=== PATIENT | female | born 1995 | race Caucasian/White ===

== ENCOUNTER 2019-07-22 07:43 | Emergency (ER) | payer BC, MEDICAID ==
--- NOTE | 2019-07-22 08:17 | EDM.PDOC ---
ED HPI GENERAL MEDICAL PROBLEM - General Chief Complaint: ENT Problem Time Seen by Provider: 07/22/19 07:45 Source of Information: Reports: Patient, Family History Limitations: Reports: No Limitations - History of Present Illness INITIAL COMMENTS - FREE TEXT/NARRATIVE: Patient presents to clinic today with mother with complaints of nasal congestion , sore throat and body aches. Patient states symptoms started Tuesday and she went to clinic which they told her it was a viral infection and to take OTC medication. Patient denies being tested for strep or influenza at that time. Patient states her throat pain and nasal congestion has worsened. Patient denies productive cough, wheezing, SOB, rhinorrhea, sneezing, rash, abdominal pain. Patient states her ears feel sore as well. Patient states she has used Sudafed, Mucinex, Tylenol and ibuprofen with little relief of head pressure and sore throat. Mother states patient has had strep in the past when she was younger. Patient refused influenza testing. Onset Date: 07/20/19 Duration: Getting Worse Location: Reports: Head, Face, Other (throat) Severity: Moderate Improves with: Reports: None Worsens with: Reports: Eating Associated Symptoms: Reports: No Other Symptoms Treatments MANAGER CREDIT RISK: Reports: Acetaminophen Posterior Throat Pain Score (Numeric/FACES): 8 - Related Data Allergies Allergy/AdvReac Type Severity Reaction Status Date / Time No Known Drug Allergies Allergy Other Verified 07/22/19 07:55 Home Meds: Home Meds Amoxicillin 875 mg PO BID #20 tablet 07/23/19 [Rx] Past Medical History - Past Health History Medical/Surgical History: Denies Medical/Surgical History Social & Family History - Tobacco Use Smoking Status *Q: Never Smoker ED ROS GENERAL - Review of Systems Review Of Systems: See Below Constitutional: Reports: Other (myalgia) HEENT: Reports: Ear Pain, Sinus Problem, Throat Pain. Denies: Ear Discharge, Eye Discharge, Eye Pain, Nose Pain, Vision Change Respiratory: Denies: Shortness of Breath, Wheezing, Cough, Sputum Cardiovascular: Denies: Chest Pain, Lightheadedness, Palpitations, Syncope Endocrine: Reports: No Symptoms GI/Abdominal: Reports: Decreased Appetite. Denies: Abdominal Pain, Constipation , Diarrhea, Nausea : Reports: No Symptoms Musculoskeletal: Reports: No Symptoms Skin: Reports: No Symptoms. Denies: Rash Neurological: Reports: No Symptoms Psychiatric: Reports: No Symptoms Hematologic/Lymphatic: Reports: No Symptoms Immunologic: Reports: No Symptoms ED EXAM, GENERAL - Physical Exam Exam: See Below Exam Limited By: No Limitations General Appearance: Alert, WD/WN, No Apparent Distress Eye Exam: Bilateral Eye: EOMI, PERRL Ears: Normal External Exam, Normal Canal, Hearing Grossly Normal, Normal TMs Ear Exam: Bilateral Ear: Auricle Normal, Canal Normal, TM normal Nose: Normal Inspection Throat/Mouth: Other (tonsils 3+, erythematous, small amount of exudate on right posterier aspect of tonsils, posterior pharynx is erythematous) Neck: Normal Inspection, Supple, Non-Tender Respiratory/Chest: No Respiratory Distress, Lungs Clear, Normal Breath Sounds, No Accessory Muscle Use, Chest Non-Tender Cardiovascular: Normal Peripheral Pulses, Regular Rate, Rhythm, No Edema, No Murmur Peripheral Pulses: 2+: Radial (L), Radial (R) GI/Abdominal: Normal Bowel Sounds, Soft, Non-Tender, No Organomegaly, No Distention, No Mass (Female) Exam: Deferred Rectal (Female) Exam: Deferred Back Exam: Normal Inspection Extremities: Normal Inspection Neurological: Alert, Oriented, CN II-XII Intact, Normal Cognition, Normal Reflexes, No Motor/Sensory Deficits Psychiatric: Normal Affect, Normal Mood Skin Exam: Warm, Dry, Intact, Normal Color, No Rash Lymphatic: No Adenopathy Course - Vital Signs Last Recorded V/S: Last Vital Signs Temp 36.1 C 07/22/19 07:48 Pulse 100 07/22/19 07:48 Resp 18 07/22/19 07:48 BP 120/77 07/22/19 07:48 Pulse Ox 97 07/22/19 07:48 - Re-Assessments/Exams Free Text/Narrative Re-Assessment/Exam: Patient swabbed for strep 07/22/19 0810 Departure - Departure Time of Disposition: 08:48 Disposition: Home, Self-Care 01 Clinical Impression: Viral illness - Discharge Information Prescriptions: Amoxicillin 875 mg PO BID #20 tablet Instructions: Viral Illness, Adult Referrals: Corrie Glasgow MD [Primary Care Provider] - Forms: ED Department Discharge Additional Instructions: Home to rest. Tylenol and ibuprofen for fever/discomfort. We will culture your throat swab. I will call you if it is positive. Recheck in clinic in 10-14 days, sooner if not gradually improving. 07/23/2019 S: Throat Cx results returned O: Throat Cx=Positive Strep A/P: +Strep Throat -Patient notified by phone of cx results, Rx for Amoxicillin 875mg po BID #20 faxed to [facility] Sepsis Event Note - Evaluation Sepsis Screening Result: No Definite Risk - Focused Exam Date Exam was Performed: 07/22/19 Time Exam was Performed: 11:53 - Assessment/Plan Plan: Home to rest. Tylenol and ibuprofen for fever/discomfort. We will culture your throat swab. I will call you if it is positive. Recheck in clinic in 10-14 days, sooner if not gradually improving.
== END 2019-07-22 08:48 | disposition home or self-care (01) ==
LOC: VM.ED 07:43
DX: B34.9 Viral infection, unspecified (principal)
CPT/HCPCS: 87081; 87880-QW; 99283